=== PATIENT | female | born 1990 | race Caucasian/White ===

== ENCOUNTER 2017-07-15 13:00 | Emergency (ER) | payer OTHER, SELFPAY ==
[2017-07-15] MEDS ORDERED: Lidocaine 1% (PF) 30 ML VIAL ONE (13:05)
--- NOTE | 2017-07-15 15:10 | RAD ---
RIGHT HAND 3 VIEWS: Date: 07/15/17 HISTORY: Trauma to hand while mowing grass. FINDINGS: There is soft tissue injury and a fracture of the tuft of the distal phalanx of the ring finger. IMPRESSION: Traumatic injury with fracture of the tuft of the distal phalanx of the ring finger. POS: [facility]
== END 2017-07-15 14:30 | disposition home or self-care (01) ==
LOC: ERS 13:00
DX: S68.124A Partial traumatic metacarpophalangeal amputation of right ring finger, initial encounter (principal); W26.8XXA Contact with other sharp object(s), not elsewhere classified, initial encounter; Y93.H2 Activity, gardening and landscaping
CPT/HCPCS: 11760; J2001

== ENCOUNTER 2017-07-16 19:24 | Emergency (ER) | payer SELFPAY | END 2017-07-16 20:32 | disposition home or self-care (01) | LOC: ERS 19:24 | DX: R21 Rash and other nonspecific skin eruption (principal); T36.1X5A Adverse effect of cephalosporins and other beta-lactam antibiotics, initial encounter; Z79.899 Other long term (current) drug therapy | CPT/HCPCS: 99283 ==